=== PATIENT | female | born 1975 | race African-American/Black ===

== ENCOUNTER 2024-10-24 15:28 | Emergency (ER) | payer MEDICAID ==
[~2024-10-24] VITALS: Ht 162.6 cm; Wt 66.0 kg
[2024-10-24 15:47] VITALS: O2SAT 100
[2024-10-24 19:13] LABS: CREATININE 0.7 mg/dL (0.6-1.0)
[2024-10-24 19:14] LABS: UREA NITROGEN BLOOD 7 mg/dL (9-23)
[2024-10-24 19:15] LABS: ASPARTATE AMINOTRANSFERASE 15 IU/L (<34); HCG SCREEN NEGATIVE
[2024-10-24 19:16] LABS: BILIRUBIN DIRECT 0.2 mg/dL (<=3.0); BILIRUBIN TOTAL 0.7 mg/dL (0.1-1.0); PROTEIN TOTAL 7.2 g/dL (6.0-8.3)
[2024-10-24 20:01] LABS: EOSINOPHILS % 3.4 % (0.0-5.0); PLATELET 223 x1000/uL (130-400); RED CELL DISTRIBUTION WIDTH 23.4 % (11.6-14.6)
[2024-10-24 20:04] LABS: BASOPHILS % 0.3 % (0.0-2.0); HEMATOCRIT. 32.5 % (36.0-48.0); HEMOGLOBIN. 10.9 g/dL (12.0-16.0); LYMPHOCYTES % 30.5 % (20.0-50.0); MEAN PLATELET VOLUME 9.4 fl (7.4-10.4); MONOCYTES % 4.8 % (2.0-8.0); NEUTROPHILS % 61.0 % (40.0-76.0); RED BLOOD CELL COUNT 4.24 mill/uL (4.2-5.4)
[2024-10-24 20:05] LABS: ADD RBC MORPHOLOGY YES
[2024-10-24] MEDS ORDERED: FEO PR (20:20)
[2024-10-24] MEDS ORDERED: POLY17PO3 MT (20:20)
[2024-10-24 20:26] LABS: PLATELET ESTIMATE NORMAL
[2024-10-24 20:45] VITALS: BP 149/88; PULSE 72; RESP 17; TEMP 36.8; O2SAT 100
== END 2024-10-24 20:57 | disposition home or self-care (01) ==
LOC: ER 15:28
DX: K59.00 Constipation, unspecified (principal); Z90.710 Acquired absence of both cervix and uterus
CPT/HCPCS: 36415; 80048; 80076; 84703; 85025; 99283